=== PATIENT | female | born 1975 | race African-American/Black ===

== ENCOUNTER 2016-09-10 15:43 | Emergency (ER) | payer OTHER ==
[~2016-09-10] VITALS: Ht 162.6 cm; Wt 104.3 kg
[~2016-09-10 15:43] MED LIST: AMOXICILLIN500 MG ORAL; NEXAFED30 MG ORAL; NKM
[2016-09-10] MEDS ORDERED: Ketorolac 60mg Inj IM ONE (16:00)
--- NOTE | 2016-09-10 16:24 | Emergency Room Report ---
History of Present Illness General Chief Complaint: Pain Source: Patient Present Illness HPI 41-year-old female presents emergency department complaining of localized 8/10 pain described as tightness in the palmar aspect of the right thumb and thenar area x1 week . Patient states onset of pain was after playing [employer] game on her phone for several hours. Patient denies trauma or fall patient denies erythema, swelling, increased temperature palpation or bony tenderness. She reports it feels as though the muscles in her thumb are tight, and described constant aching in the palmar aspect of the left thumb and thenar area. Pt. is left hand dominant. Denies numbness tingling or loss of sensation or gross motor movements of the extremities, incontinence of bowel or bladder. Denies CP, Palpitations, LOC, AMS, dizziness, Changes in Vision, Sensation, paresthesias, or a sudden severe headache. Allergies: Coded Allergies: No Known Allergies (Unverified , 05/03/16) Patient History Past Medical History: see triage record Past Surgical History: none Pertinent Family History: none Last Menstrual Period: 07/19/2016 Now: No : 2 Para: 0 Immunizations: UTD Reviewed Nursing Documentation: PMH: Agreed, PSxH: Agreed Nursing Documentation-PMH Past Medical History: No Stated History Review of Systems All Other Systems: negative except mentioned in HPI Physical Exam Vital Signs Date Time Temp Pulse Resp B/P Pulse Ox O2 Delivery O2 Flow Rate FiO2 09/10/16 15:49 97.5 103 14 104/75 96 Room Air Sp02 EP Interpretation: reviewed, normal General Appearance: no apparent distress, alert, GCS 15, non-toxic Head: normocephalic, atraumatic Eyes: bilateral eye PERRL, bilateral eye normal inspection ENT: hearing grossly normal, normal pharynx, no angioedema, normal voice Neck: full range of motion, supple/symm/no masses Respiratory: lungs clear, normal breath sounds, speaking full sentences Cardiovascular #1: regular rate, rhythm, no edema Cardiovascular #2: 2+ radial (R), 2+ radial (L) Gastrointestinal: no guarding Rectal: deferred Musculoskeletal: back normal, gait/station normal, normal range of motion - with discomfort of the right thumb, tender - mild ttp to the thenar muscle in the right hand, no erythema, no swelling, no deformities, no increased temperature to palpation. Neurologic: alert, oriented x3, responsive, motor strength/tone normal, sensory intact, speech normal Psychiatric: judgement/insight normal, memory normal, mood/affect normal, no suicidal/homicidal ideation Skin: normal color, no rash, warm/dry, well hydrated Procedures Splinting Splinting : Consent: Verbal Location: right hand Pre-Made Type: velcro Splint: thumb spica Pre-Proc Neuro Vasc Exam: normal Post-Proc Neuro Vasc Exam: normal Patient Tolerated: Well Complications: None Medical Decision Making PA Attestation Dr. rFancois is my supervising Physician whom patient management has been discussed with. Diagnostic Impression: Primary Impression: Thumb tendonitis ER Course 41-year-old female presents emergency department complaining of localized 8/10 pain described as tightness in the palmar aspect of the right thumb and thenar area x1 week . Patient states onset of pain was after playing [employer] game on her phone for several hours. Patient denies trauma or fall patient denies erythema, swelling, increased temperature palpation or bony tenderness. She reports it feels as though the muscles in her thumb are tight. Reports constant ache to the thenar area. Ddx considered but are not limited to Fracture, dislocation, contusion, Sprain/ Strain/Spasm, Tendonitis, Arthritis Vital signs: are WNL, pt. is afebrile History & PE are most consistent with Thenar tendonitis of the right thumb, no bony ttp, no evidence of infection. HPI does not include traumatic injury. ORDERS: - X-ray not warranted at this time, there is no bony ttp or obvious deformity on PE/palpation. ED INTERVENTIONS: - Toradol IM - Thumb Spika splint is applied to the right thumb/wrist by respiratory therapy technician, pt remains NVI. PLAN: Conservative treatment and rest. pt. agrees with proposed treatment plan , and verbalizes her understanding and agreement. DISCHARGE: At this time pt. is stable for d/c to home. Will provide printed patient care instructions, and any necessary prescriptions. Care plan and follow up instructions have been discussed with the patient prior to discharge. Last Vital Signs Date Time Temp Pulse Resp B/P Pulse Ox O2 Delivery O2 Flow Rate FiO2 09/10/16 15:49 97.5 103 14 104/75 96 Room Air Disposition: HOME, SELF-CARE Condition: Stable Scripts Naproxen* (NAPROXEN*) 500 Mg Tablet 500 MG ORAL TWICE A WEEK for 14 Days, #60 TAB 0 Refills Prov: Louann Carr 09/10/16 Referrals: [facility]ERR[facility] (PCP) Patient Instructions: Tendinitis, [id number] Additional Instructions: Take medications as directed. Follow up with PCP in 3-5 days Return sooner to ED if new symptoms occur, or current symptoms become worse. - Please note that this Emergency Department Report was dictated using Mobile [employer] machine tender technology software, occasionally this can lead to erroneous entry secondary to interpretation by the dictation equipment. Louann Carr Sep 10, 2016 16:24
[2016-09-10] MEDS ORDERED: NAPROXEN500 M2 ORAL (16:27)
[2016-09-10 16:28] VITALS: BP 110/78
[2016-09-10 16:37] VITALS: BP 110/78
== END 2016-09-10 16:38 | disposition home or self-care (01) ==
LOC: EMR 16:08
DX: M77.8 Other enthesopathies, not elsewhere classified (principal)
CPT/HCPCS: 99283

== ENCOUNTER 2017-11-08 14:47 | Emergency (ER) | payer MEDICARE, MEDICAID ==
[~2017-11-08] VITALS: Ht 162.6 cm; Wt 118.4 kg
[~2017-11-08 14:47] MED LIST changes: +NAPROXEN500 M2 ORAL
[2017-11-08] MEDS ORDERED: PREDNISONE20 MG ORAL (15:23)
--- NOTE | 2017-11-08 15:23 | Emergency Room Report ---
History of Present Illness General Chief Complaint: Skin Rash/Abscess Source: Patient Present Illness HPI Patient is a 42-year-old female who presents today with complaints of rash that began 2 days ago. 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 She states that over the past couple days she has noticed a rash. She states the rash is itching, no medication has been taken. She denies any shortness of breath or sustained symptoms. She has no significant medical problems and denies tobacco, alcohol or drug use. Allergies: Coded Allergies: SULFAMETHOXAZOLE (Verified Allergy, Unknown, 11/08/17) TRIMETHOPRIM (Verified Allergy, Unknown, 11/08/17) Patient History Last Menstrual Period: 09/18/17 Now: No Reviewed Nursing Documentation: PMH: Agreed; PSxH: Agreed Nursing Documentation-PM Past Medical History: No Stated History Review of Systems Skin: Reports: rash All Other Systems: negative except mentioned in HPI Physical Exam Vital Signs Date Time Temp Pulse Resp B/P (MAP) Pulse Ox O2 Delivery O2 Flow Rate FiO2 11/08/17 15:02 98.4 77 20 95/76 96 Room Air 98.4 Sp02 EP Interpretation: reviewed, normal General Appearance: no apparent distress, alert, GCS 15, non-toxic Head: normocephalic, atraumatic Eyes: bilateral eye normal inspection, bilateral eye PERRL ENT: hearing grossly normal, normal pharynx, no angioedema, normal voice Neck: full range of motion, supple/symm/no masses Respiratory: chest non-tender, lungs clear, normal breath sounds, speaking full sentences Cardiovascular #1: regular rate, rhythm, no edema Cardiovascular #2: 2+ carotid (R), 2+ carotid (L), 2+ radial (R), 2+ radial (L) , 2+ dorsalis pedis (R), 2+ dorsalis pedis (L) Gastrointestinal: normal bowel sounds, non tender, soft, non-distended, no guarding, no rebound Rectal: deferred Genitourinary: normal inspection, no CVA tenderness Musculoskeletal: back normal, gait/station normal, normal range of motion, non- tender, calf tenderness Neurologic: alert, oriented x3, responsive, motor strength/tone normal, sensory intact, speech normal Psychiatric: judgement/insight normal, memory normal, mood/affect normal, no suicidal/homicidal ideation Reflexes: 3+ bicep (R), 3+ bicep (L), 3+ tricep (R), 3+ tricep (L), 3+ knee (R) , 3+ knee (L) Skin: normal color, warm/dry, well hydrated, other - maculopapular eruption on bilateral upper extremities Lymphatic: no adenopathy Medical Decision Making PA Attestation Supervising physician is Dr. eHrnandes Reaction to Intervention: Improved Diagnostic Impression: Primary Impression: Allergic urticaria ER Course Findings consistent with allergic urticaria. No evidence of infection or systemic reaction. Patient is discharged home with prednisone and answers to Benadryl. Patient understands and is agreeable with plan. Last Vital Signs Date Time Temp Pulse Resp B/P (MAP) Pulse Ox O2 Delivery O2 Flow Rate FiO2 11/08/17 15:02 98.4 77 20 95/76 96 Room Air 98.4 Status: improved Disposition: HOME, SELF-CARE Condition: Stable Scripts Prednisone* (PREDNISONE*) 20 Mg Tablet 20 MG ORAL DAILY PRN for BID for 4 Days, #8 TAB 0 Refills Prov: Anabella Martinez 11/08/17 Patient Instructions: Anabella Torres Nov 08, 2017 15:23
[2017-11-08 16:27] VITALS: BP 95/76
[2017-11-08 20:08] VITALS: BP 95/76
== END 2017-11-08 18:00 | disposition home or self-care (01) ==
LOC: EMR 16:28
DX: L50.0 Allergic urticaria (principal); Z88.2 Allergy status to sulfonamides; Z88.8 Allergy status to other drugs, medicaments and biological substances
CPT/HCPCS: 99283